=== PATIENT | female | born 1985 | race Caucasian/White ===

== ENCOUNTER 2017-04-30 22:27 | Emergency (ER) | payer SELFPAY ==
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
[2017-05-01 01:19] LABS: URINE MICROSCOPIC INDICATED? YES; URINE SOURCE RANDOM
[2017-05-01 01:36] LABS: URINE BILIRUBIN NEGATIVE (NEGATIVE); URINE BLOOD NEGATIVE (NEGATIVE); URINE CLARITY CLEAR (CLEAR); URINE COLOR YELLOW; URINE GLUCOSE (UA) NEGATIVE (NEGATIVE); URINE KETONE NEGATIVE (NEGATIVE); URINE LEUKOCYTE ESTERASE NEGATIVE (NEGATIVE); URINE NITRATE NEGATIVE (NEGATIVE); URINE PROTEIN NEGATIVE (NEGATIVE)
[2017-05-01 01:39] LABS: URINE BACTERIA OCCASIONAL /hpf (NONE SEEN); URINE EPITHELIAL CELLS FEW /lpf (FEW); URINE RBC 0-2 /hpf (0-5); URINE WBC 0-2 /hpf (0-5)
[2017-05-01 01:45] LABS: AMPHETAMINE URINE NEGATIVE (NEGATIVE); BARBITURATES URINE NEGATIVE (NEGATIVE); BENZODIAZEPINES QUAL URINE NEGATIVE (NEGATIVE); CANNABINOID THC NEGATIVE (NEGATIVE); COCAINE METABOLITE QUAL URINE NEGATIVE (NEGATIVE); METHADONE URINE NEGATIVE (NEGATIVE); METHAMPHETAMINES QUAL URINE NEGATIVE (NEGATIVE); OPIATES (MORPHINE) QUAL. URINE NEGATIVE (NEGATIVE); PHENCYCLIDINE (PCP) URINE NEGATIVE (NEGATIVE); TRICYCLICS (TCA) QUAL. URINE NEGATIVE (NEGATIVE)
--- NOTE | 2017-05-01 08:10 | Diagnostic Imaging Report ---
EXAM: Cervical spine HISTORY: Neck pain FINDINGS: Multiple views of cervical spine reviewed. The study demonstrates vertebral bodies of normal height with preserved intervertebral disc spaces. There is evidence for anterolisthesis of C2 on C3, and C3 on C4 vertebra with reversal of normal lordosis. This might be due to muscle spasm versus positioning. There is no evidence of fracture dislocation of subluxation. No prevertebral soft tissue swelling is noted the pedicles are intact. IMPRESSION: 1. Anterior listhesis of C2 on C3 and C3 on C4 vertebra with reversal of normal cervical lordosis most likely positional versus muscle spasm. If clinically indicated MRI examination might helpful.
== END 2017-05-01 01:35 | disposition home or self-care (01) ==
LOC: ER 22:27
DX: M54.2 Cervicalgia (principal); R51 Headache; I50.9 Heart failure, unspecified
CPT/HCPCS: 99285; 96372; 96374; 72050; 80307; 81001; 81025 ×2; J1885; J2930; Z7610